=== PATIENT | female | born 1990 | race Caucasian/White ===

== ENCOUNTER → 2018-08-27 | Outpatient (CLI) | payer OTHER ==
[~2018-08-27] MED LIST: PRED10TA PO
== END | disposition home or self-care (01) ==
LOC: CFH 12:20
PROVIDERS: ATTEND Physician Assistant
DX: N64.59 Other signs and symptoms in breast (principal)

== ENCOUNTER 2019-01-29 20:58 | Emergency (ER) | payer OTHER ==
[~2019-01-29] VITALS: Ht 170.2 cm; Wt 158.3 kg
--- NOTE | 2019-01-29 21:22 | NUR ---
pt to room from lobby
--- NOTE | 2019-01-29 21:38 | NUR ---
PT SLIPPED AND FELL WHILE COOKING AROUND 1630 THIS EVENING. PT STRUCK BACK OF HEAD ON STOVE 'BREAKING STOVE'. DENIES LOC, HAS HAD HEADACHE SINCE INCIDENT
[2019-01-29] MEDS ORDERED: ONDANSETRON ODT 4 MG ONE (21:51)
--- NOTE | 2019-01-29 21:55 | NUR ---
PT PLACED IN HARD COLLAR AND MEDICATED PER eMAR
[2019-01-29] MEDS ORDERED: ONDANSETRON ODT 4 MG PO ONE (22:00)
[2019-01-29] MEDS ORDERED: IBUPROFEN 600 MG TABLET ONE (22:47)
[2019-01-29] MEDS ORDERED: IBUPROFEN 200 MG TABLET PO ONE (23:00)
[2019-01-29 23:08] VITALS: BP 129/64
--- NOTE | 2019-01-29 23:09 | NUR ---
Patient/Caregiver given discharge instructions and they have confirmed that they understand the instructions. Patient ambulatory with steady gait.
== END 2019-01-29 23:10 | disposition home or self-care (01) ==
LOC: ED 22:22
DX: S16.1XXA Strain of muscle, fascia and tendon at neck level, initial encounter (principal); S06.310A Contusion and laceration of right cerebrum without loss of consciousness, initial encounter; S06.320A Contusion and laceration of left cerebrum without loss of consciousness, initial encounter; Z87.891 Personal history of nicotine dependence; W01.0XXA Fall on same level from slipping, tripping and stumbling without subsequent striking against object, initial encounter; Y93.89 Activity, other specified; Y92.009 Unspecified place in unspecified non-institutional (private) residence as the place of occurrence of the external cause; Y99.8 Other external cause status
CPT/HCPCS: 70450; 72125; 99284; Q0162

== ENCOUNTER 2019-03-14 13:30 | Emergency (ER) | payer OTHER ==
[~2019-03-14] VITALS: Ht 170.2 cm; Wt 158.3 kg
[2019-03-14 14:51] LABS: BASOPHILS # (AUTO) 0.04 x10^3/uL (0-0.1); BASOPHILS % (AUTO) 0 % (0-1); EOSINOPHILS # (AUTO) 0.07 x10^3/uL (0-0.4); EOSINOPHILS % (AUTO) 1 % (1-7); LYMPHOCYTES # (AUTO) 3.75 x10^3/uL (1-3.4); LYMPHOCYTES % (AUTO) 36 % (22-44); MD NO; MEAN CORPUSCULAR HEMOGLOBIN 27.4 pg (27.0-34.8); MEAN CORPUSCULAR HGB CONC 33.4 g/dL (32.4-35.8); MEAN CORPUSCULAR VOLUME 81.9 fL (80-100); MEAN PLATELET VOLUME 8.3 fL (7.4-10.4); MONOCYTES # (AUTO) 0.79 x10^3/uL (0.2-0.8); MONOCYTES % (AUTO) 8 % (2-9); NEUTROPHILS # (AUTO) 5.75 x10^3/uL (1.8-6.8); NEUTROPHILS % (AUTO) 55 % (42-75); PLATELET COUNT 385 x10^3/uL (130-400); RED BLOOD COUNT 4.93 x10^6/uL (3.82-5.3); RED CELL DISTRIBUTION WIDTH 16.9 % (9.6-15.2)
--- NOTE | 2019-03-14 14:57 | NUR ---
[employer] AND [employer]IE[employer] OFFICER: TO ROOM FROM LOBBY
[2019-03-14 15:01] LABS: ALANINE AMINOTRANSFERASE 33 U/L (12-78); ANION GAP 6 mmol/L (5-15); CALCIUM 9.6 mg/dL (8.5-10.1); CHLORIDE 109 mmol/L (98-107); CREATININE 1.17 mg/dL (0.55-1.02)
--- NOTE | 2019-03-14 15:04 | NUR ---
pt to room from lobby, changed into gown, upright on gurney awake & calm, responds approp to staff, NAD, comfort measures provided, call light within reach.
[2019-03-14 15:05] LABS: ALKALINE PHOSPHATASE 95 U/L (45-117); BILIRUBIN,TOTAL 0.4 mg/dL (0.2-1.0); TOTAL PROTEIN 8.1 g/dL (6.4-8.2)
[2019-03-14] MEDS ORDERED: BUSP5TAB2 PO (15:10)
[2019-03-14] MEDS ORDERED: TRAZ50TA66 PO (15:10)
[2019-03-14] MEDS ORDERED: LORA0.5T PO (15:10)
[2019-03-14] MEDS ORDERED: OMEP20TA62 PO (15:10)
[2019-03-14] MEDS ORDERED: GABA300C10 PO ×2 (15:10)
[2019-03-14] MEDS ORDERED: OLAN15TA9 PO (15:10)
[2019-03-14] MEDS ORDERED: METOCLOPRAMIDE 5 MG/ML, 2ML IVPush ONE (15:30)
[2019-03-14] MEDS ORDERED: SODIUM CHLORIDE FLUSH 10ML SYR IVF ONE (15:30)
[2019-03-14] MEDS ORDERED: DIPHENHYDRAMINE 50 MG/ML, 1ML IVPush ONE (15:30)
[2019-03-14] MEDS ORDERED: KETOROLAC 30 MG/1 ML IVPush ONE (15:30)
[2019-03-14] MEDS ORDERED: DIPHENHYDRAMINE 50 MG/ML, 1ML ONE (15:35)
[2019-03-14] MEDS ORDERED: METOCLOPRAMIDE 5 MG/ML, 2ML ONE (15:35)
[2019-03-14] MEDS ORDERED: KETOROLAC 30 MG/1 ML ONE (15:35)
--- NOTE | 2019-03-14 15:57 | NUR ---
pt to MRI
--- NOTE | 2019-03-14 16:05 | NUR ---
pr returned from MRI d/t anxiety, PA at BS. pt upright on gurney awake & more comfortable after meds, responds approp to staff, NAD, comfort measures provided, friend at BS, call light within reach.
[2019-03-14] MEDS ORDERED: LORazepam 2 MG/ML, 1ML ONE (16:17)
--- NOTE | 2019-03-14 16:28 | NUR ---
pt back to MRI
[2019-03-14] MEDS ORDERED: LORazepam 2 MG/ML, 1ML IVPush ONE (16:30)
[2019-03-14] MEDS ORDERED: GADOBUTROL 15 MMOL/15 ML VIAL ONE (16:50)
--- NOTE | 2019-03-14 16:59 | NUR ---
pt returned from MRI
[2019-03-14 17:02] VITALS: BP 120/74
--- NOTE | 2019-03-14 17:02 | NUR ---
pt remains upright on gurney awake & more comfortable, responds approp to staff, NAD, comfort measures provided, friend at BS, call light within reach.
--- NOTE | 2019-03-14 17:36 | NUR ---
Patient given discharge instructions and Rx, they have confirmed that they understand the instructions. Patient ambulatory with steady gait.
== END 2019-03-14 17:38 | disposition home or self-care (01) ==
LOC: ED 15:38
DX: G44.219 Episodic tension-type headache, not intractable (principal); K21.9 Gastro-esophageal reflux disease without esophagitis
CPT/HCPCS: 36415; 70553; 80053; 84703; 85025; 93005; 96374; 96375; 99284; A9585; J1200; J1885; J2060; J2765

== ENCOUNTER 2021-08-11 10:41 | Emergency (ER) | payer OTHER, MEDICAID ==
[~2021-08-11] VITALS: Ht 170.2 cm; Wt 175.0 kg
[~2021-08-11 10:41] MED LIST changes: +BUSP5TAB2 PO; +GABA300C10 PO; +LORA0.5T PO; +OLAN15TA14 PO; +OMEP20TA62 PO; +TRAZ50TA66 PO
--- NOTE | 2021-08-11 11:04 | NUR ---
PT BLOOD SUGAR 222 "I JUST HAD A VANILLA LATTE"
[2021-08-11 11:57] LABS: BASOPHILS % (AUTO) 1 % (0-1); EOSINOPHILS % (AUTO) 3 % (1-7); LYMPHOCYTES % (AUTO) 37 % (22-44); MEAN CORPUSCULAR HEMOGLOBIN 28.5 pg (27.0-34.8); MEAN CORPUSCULAR HGB CONC 33.5 g/dL (32.4-35.8); MEAN PLATELET VOLUME 8.3 fL (7.4-10.4); MONOCYTES % (AUTO) 7 % (2-9); NEUTROPHILS % (AUTO) 52 % (42-75); PLATELET COUNT 391 x10^3/uL (130-400); RED BLOOD COUNT 4.86 x10^6/uL (3.82-5.3); RED CELL DISTRIBUTION WIDTH 16.4 % (9.6-15.2)
[2021-08-11 12:01] LABS: ALBUMIN 3.6 g/dL (3.4-5.0); ANION GAP 10 mmol/L (5-15); CALCIUM 9.5 mg/dL (8.5-10.1); CHLORIDE 106 mmol/L (98-107); CREATININE 1.05 mg/dL (0.55-1.02)
[2021-08-11 12:22] LABS: HCT (SEDRATE) 41.4 % (34.6-47.8)
--- NOTE | 2021-08-11 14:57 | NUR ---
Patient roomed from [facility]
[2021-08-11] MEDS ORDERED: KETOROLAC 60 MG/2 ML ONE (15:25)
[2021-08-11] MEDS ORDERED: KETOROLAC 30 MG/1 ML IM ONE (15:30)
[2021-08-11 15:47] LABS: MICROSCOPIC INDICATED
[2021-08-11 16:35] VITALS: BP 135/66
== END 2021-08-11 17:02 | disposition home or self-care (01) ==
LOC: ED 16:50
DX: M54.5 Low back pain (principal); N39.0 Urinary tract infection, site not specified; M79.661 Pain in right lower leg; M79.662 Pain in left lower leg; Z90.49 Acquired absence of other specified parts of digestive tract; Z88.2 Allergy status to sulfonamides
CPT/HCPCS: 36415; 72131; 80048; 81001; 82040; 82962; 85025; 85651; 86140; 87086; 96372; 99284; J1885